=== PATIENT | male | born 1980 | race Caucasian/White ===

== ENCOUNTER → 2017-09-25 | Outpatient (CLI) | payer OTHER | LOC: M.CT 10:12 | DX: N43.2 Other hydrocele (principal); Z98.890 Other specified postprocedural states ==

== ENCOUNTER 2021-01-26 14:21 | Emergency (ER) | payer OTHER ==
[~2021-01-26] VITALS: Ht 177.8 cm; Wt 70.3 kg
[2021-01-26 14:40] LABS: URINE BILIRUBIN NEGATIVE (Negative); URINE BLOOD NEGATIVE (Negative); URINE CLARITY CLEAR; URINE COLOR YELLOW; URINE GLUCOSE-RANDOM NEGATIVE (Negative); URINE KETONES NEGATIVE (Negative); URINE LEUKOCYTES-REFLEX NEGATIVE (Negative); URINE NITRITE-REFLEX NEGATIVE (Negative); URINE PROTEIN NEGATIVE (Negative); URINE SPECIFIC GRAVITY >= 1.030 (1.005-1.030); URINE UROBILINOGEN 0.2 E.U./dl (0.2-1.0)
[2021-01-26 14:54] LABS: ABSOLUTE LYMPHOCYTES 1.2 thou/uL (0.8-5.3); ABSOLUTE MONOCYTES 0.4 thou/uL (0.0-1.2); ABSOLUTE NEUTROPHILS 4.8 thou/uL (1.6-8.1); BASOPHILS 0.5 %; EOSINOPHILS 0.1 %; HEMATOCRIT 44.7 % (42.0-52.0); HEMOGLOBIN 15.3 gm/dL (14.0-18.0); LYMPHOCYTES 18.9 %; MCH 30.6 pg (26.0-34.0); MCHC 34.2 g/dL (28.0-37.0); MCV 89.5 fL (80.0-100.0); MONOCYTES 6.5 %; MPV 7.9 fl. (7.2-11.1); NUCLEATED RBCS 0 /100WBC; PLATELET COUNT* 249 thou/uL (150-400); RDW-CV 12.7 % (10.5-14.5); WBC 6.5 thou/uL (4.0-11.0)
[2021-01-26 15:03] LABS: CALCIUM 9.2 mg/dL (8.5-10.1); POTASSIUM 4.1 mmol/L (3.5-5.1)
[2021-01-26 15:07] LABS: ALBUMIN 4.6 g/dL (3.4-5.0); TOTAL BILIRUBIN 0.7 mg/dL (<0.1-1.0); TOTAL PROTEIN 7.7 g/dL (6.4-8.2)
[2021-01-26] MEDS ORDERED: PEPCID20 MG PO (16:09)
[2021-01-26] MEDS ORDERED: OMEPRAZOLE 20 M20 M1 PO (16:09)
[2021-01-26] MEDS ORDERED: ONDANSETRON HCL4 M2 PO (16:09)
[2021-01-26] MEDS ORDERED: HYDROCODON-ACE1 EAC7 PO (16:13)
[2021-01-26 16:22] VITALS: BP 115/70
--- NOTE | 2021-01-27 10:09 | EKG ---
[place] [address] ELECTROCARDIOGRAM REPORT Name: TIMOTEO MACIAS Room: [facility]#: [id number] Admission: 01/26/21 Attend Phys: Discharge: 01/26/21 Date of : 76 Date of Service: 01/26/21 1442 Report #: [id number] THIS REPORT FOR: //name// [facility] ED Test Date: 2021-01-26 Test Time: 14:42:15 Pat Name: TIMOTEO MACIAS Department: Room: Gender: [place]: : 1980 Requested By: Luz Elena Moran Order Number: [id number] MD: Yonatan Lazo Measurements Intervals [place] Rate: 71 P: 59 IA: 152 QRS: 25 QRSD: 90 T: 29 QT: 365 QTc: 397 Interpretive Statements Sinus rhythm No previous ECG available for comparison Electronically Signed On 01-27-2021 10:09:32 CDT by Yonatan Lazo [email or web address] <ELECTRONICALLY SIGNED> By: Yonatan Lazo MD, [facility] 01/27/21 1009 1442 1442 Yonatan Lazo MD, FACC /EPI
== END 2021-01-26 16:23 | disposition home or self-care (01) ==
LOC: M.ERS 14:21
PROVIDERS: Physician Assistant
DX: R10.31 Right lower quadrant pain (principal); R10.13 Epigastric pain; R10.12 Left upper quadrant pain; R10.11 Right upper quadrant pain; Z90.49 Acquired absence of other specified parts of digestive tract